=== PATIENT | female | born 1945 | race African-American/Black ===

== ENCOUNTER 2017-02-14 14:15 | Emergency (ER) | payer MEDICARE ==
[~2017-02-14] VITALS: Ht 154.9 cm; Wt 85.0 kg
[2017-02-14 14:23] VITALS: BP 164/80
[2017-02-14] MEDS ORDERED: AMLO1POW MC (14:26)
== END 2017-02-14 18:55 | disposition left against medical advice (07) ==
LOC: ER 14:15
DX: R51 Headache (principal); Z53.21 Procedure and treatment not carried out due to patient leaving prior to being seen by health care provider

== ENCOUNTER 2018-11-29 05:00 | Emergency (ER) | payer MEDICARE, OTHER ==
[~2018-11-29] VITALS: Ht 154.9 cm; Wt 82.0 kg
[~2018-11-29 05:00] MED LIST: AMLO1POW MC
[2018-11-29] MEDS ORDERED: PREDNISONE 20MG TABLET PO ONE (06:45)
[2018-11-29 07:19] VITALS: BP 128/68
== END 2018-11-29 07:45 | disposition home or self-care (01) ==
LOC: ER 05:00
DX: I10 Essential (primary) hypertension (principal); F43.9 Reaction to severe stress, unspecified; J45.909 Unspecified asthma, uncomplicated; E03.9 Hypothyroidism, unspecified
CPT/HCPCS: 93005; 99283; J7512

== ENCOUNTER 2018-12-21 13:17 | Emergency (ER) | payer OTHER ==
[~2018-12-21] VITALS: Ht 154.9 cm; Wt 85.0 kg
[2018-12-21] MEDS ORDERED: SODIUM CHLORIDE 0.9% 1,000 ML IV ONE (15:31)
[2018-12-21 16:02] LABS: BASOPHILS % 1.1 % (0.0-2.0); EOSINOPHILS % 2.2 % (0.0-5.0); HEMATOCRIT. 40.2 % (36.0-48.0); HEMOGLOBIN. 13.9 g/dL (12.0-16.0); MEAN CORPUSCULAR HEMOGLOBIN 30.2 pg (28.0-32.0); MEAN CORPUSCULAR VOLUME 87.3 fL (81.0-99.0); MEAN PLATELET VOLUME 8.2 fl (7.4-10.4); MONOCYTES % 6.3 % (2.0-8.0); NEUTROPHILS % 42.4 % (40.0-76.0); PLATELET 277 x1000/uL (130-400); RED CELL DISTRIBUTION WIDTH 14.6 % (11.6-14.6)
[2018-12-21 16:04] LABS: CHLORIDE 106 mEq/L (98-107)
[2018-12-21 16:51] VITALS: BP 126/72
== END 2018-12-21 17:45 | disposition home or self-care (01) ==
LOC: ER 13:17
DX: T46.5X1A Poisoning by other antihypertensive drugs, accidental (unintentional), initial encounter (principal); T44.7X1A Poisoning by beta-adrenoreceptor antagonists, accidental (unintentional), initial encounter; T46.6X1A Poisoning by antihyperlipidemic and antiarteriosclerotic drugs, accidental (unintentional), initial encounter; T39.011A Poisoning by aspirin, accidental (unintentional), initial encounter; T45.2X1A Poisoning by vitamins, accidental (unintentional), initial encounter; I10 Essential (primary) hypertension; Y92.018 Other place in single-family (private) house as the place of occurrence of the external cause
CPT/HCPCS: 36415; 80053; 85025; 93005; 99284; J7030

== ENCOUNTER 2019-04-19 09:38 | Emergency (ER) | payer OTHER | END 2019-04-19 11:11 | disposition left against medical advice (07) | LOC: ER 09:38 | DX: Z53.21 Procedure and treatment not carried out due to patient leaving prior to being seen by health care provider (principal) ==

== ENCOUNTER 2020-09-06 10:09 | Emergency (ER) | payer OTHER ==
[~2020-09-06] VITALS: Ht 154.9 cm; Wt 90.0 kg
[2020-09-06 11:32] LABS: BASOPHILS % 1.4 % (0.0-2.0); EOSINOPHILS % 1.2 % (0.0-5.0); HEMATOCRIT. 38.1 % (36.0-48.0); HEMOGLOBIN. 13.3 g/dL (12.0-16.0); LYMPHOCYTES % 44.1 % (20.0-50.0); MEAN CORPUSCULAR HEMOGLOBIN 30.1 pg (28.0-32.0); MONOCYTES % 5.3 % (2.0-8.0); PLATELET 288 x1000/uL (130-400); RED BLOOD CELL COUNT 4.42 mill/uL (4.2-5.4); RED CELL DISTRIBUTION WIDTH 14.3 % (11.6-14.6)
[2020-09-06 11:38] LABS: CHLORIDE 108 mEq/L (98-107)
[2020-09-06 11:40] LABS: PROTHROMBIN TIME 10.8 sec (9.6-11.0)
[2020-09-06 11:47] LABS: T4 FREE 1.07 ng/dL (0.76-1.46)
[2020-09-06 12:52] VITALS: BP 139/70
== END 2020-09-06 13:18 | disposition home or self-care (01) ==
LOC: ER 10:09
DX: R20.2 Paresthesia of skin (principal)
CPT/HCPCS: 36415; 80053; 82330; 84439; 84443; 85025; 93005; 99284